=== PATIENT | male | born 1990 | race Two or more races ===

== ENCOUNTER 2021-05-07 11:53 | Emergency (ER) | payer MEDICAID, OTHER ==
[~2021-05-07] VITALS: Ht 172.7 cm; Wt 98.9 kg
[2021-05-07 13:15] VITALS: BP 170/106
[2021-05-07] MEDS ORDERED: IBUP800T27 PO (14:08)
[2021-05-07] MEDS ORDERED: CYCL-837 PO (14:08)
== END 2021-05-07 14:15 | disposition home or self-care (01) ==
LOC: ER 11:53
DX: S16.1XXA Strain of muscle, fascia and tendon at neck level, initial encounter (principal); S39.012A Strain of muscle, fascia and tendon of lower back, initial encounter; S40.022A Contusion of left upper arm, initial encounter; R51.9 Headache, unspecified; Z79.1 Long term (current) use of non-steroidal anti-inflammatories (NSAID); Z79.899 Other long term (current) drug therapy; V43.52XA Car driver injured in collision with other type car in traffic accident, initial encounter; Y93.89 Activity, other specified; Y92.410 Unspecified street and highway as the place of occurrence of the external cause; Y99.8 Other external cause status
CPT/HCPCS: 70450; 72125; 73060